=== PATIENT | male | born 1955 | race Caucasian/White ===

== ENCOUNTER 2016-08-03 12:30 | Day surgery (SDC) | payer BC ==
[~2016-08-03] VITALS: Ht 175.3 cm; Wt 97.5 kg
[~2016-08-03 12:30] MED LIST: ADVIL200 MG PO; AMRIX15 MG PO; ASCORBIC ACID500 M3 PO; ASPIR 8181 M1 PO; ATACAND16 MG PO; ATORVASTATIN CA10 MG PO; AZOPT 1% O200 DROP/1 BOTH EYES; BACTRIM,SEPT1 TABLET PO; CLINDAMYCIN HC300 MG PO; COMBIGAN O20 DROP/5 BOTH EYES; DIOVAN HCT 31 TABLE1 PO; FUROSEMIDE20 MG PO; GENTAMICIN SULF30 G1 TP; LUMIGAN 0.50 DROP/22 BOTH EYES; MELOXICAM7.5 MG PO; MEN'S MULTI-VI1 EACH PO; TIMOLOL MALEATE15 M1 BOTH EYES; TIMOPTIC-0100 DROP/1 BOTH EYES; VITAMIN D31000 UNI2 PO; XALATAN2.5 ML BOTH EYES
[2016-08-03 13:21] VITALS: BP 121/72
[2016-08-03 13:33] LABS: HEMATOCRIT 40.1 % (38.0-50.0); MCH 31.4 PG (29.0-34.0); MCHC 33.9 G/DL (30.0-36.0); MCV 92.6 FL (86-99); MEAN PLAT.VOLUME 9.3 uM^3 (9.0-12.4); PLATELET COUNT 301 K/uL (156-360); RBC DIS.WIDTH-CV 13.5 % (11.8-14.6); RBC DIS.WIDTH-SD 46.4 % (39-53); RED BLOOD COUNT 4.33 M/uL (4.00-5.50)
[2016-08-03 13:41] LABS: CHLORIDE 107 mEq/L (99-109); POTASSIUM 3.7 mEq/L (3.7-5.4); SODIUM 141 mEq/L (136-147)
[2016-08-03 13:43] LABS: GLUCOSE 117 mg/dL (70-99)
[2016-08-03 13:45] LABS: ANION GAP 13 MEQ/L (2-14); TOTAL BILIRUBIN 0.8 mg/dL (0.0-1.0)
[2016-08-03 13:47] LABS: ALKALINE PHOSPHATASE 64 IU/L (3-129); GFR ESTIMATE (CALCULATED) > 59 mL/min/
[2016-08-03 13:48] LABS: UREA NITROGEN (BUN) 14 mg/dL (9-23)
[2016-08-03 14:21] LABS: ABS NEUTROPHIL COUNT 6.1; ATYPICAL LYMPHOCYTE 3.5 %; EOSINOPHIL ABS CT 0.2; EOSINOPHILS 1.8 % (0-5.0); LYMPHOCYTES 33.3 % (15.0-45.0); PLAT.SUFFICIENCY ADEQUATE; SEG.NEUTROPHILS 55.3 % (46.0-76.0)
[2016-08-03 14:35] LABS: METH RESISTANT S AUREUS PCR NEGATIVE (NEGATIVE); PROBE CHECK PASS; SPECIMEN PROCESSING CONTROL PASS
[2016-08-03 17:50] VITALS: BP 134/75
[2016-08-03 19:38] VITALS: BP 121/66
[2016-08-03 23:43] VITALS: BP 130/63
[2016-08-04 03:52] VITALS: BP 134/80
[2016-08-04 07:21] VITALS: BP 132/74
[2016-08-04 07:59] LABS: ANION GAP 8 MEQ/L (2-14); CHLORIDE 106 MEQ/L (99-109); GFR ESTIMATE (CALCULATED) > 59 mL/min/; GLUCOSE 124 mg/dL (70-99); POTASSIUM 3.9 MEQ/L (3.7-5.4); SAMPLE HEMOLYSIS CHECK 0; SAMPLE ICTERIC CHECK 0; SAMPLE LIPEMIA CHECK 0; SODIUM 139 MEQ/L (136-147); UREA NITROGEN (BUN) 13 mg/dL (9-23)
[2016-08-04 08:12] LABS: HEMATOCRIT 38.8 % (38.0-50.0); MCH 31.4 PG (29.0-34.0); MCHC 33.8 G/DL (30.0-36.0); MEAN PLAT.VOLUME 9.5 uM^3 (9.0-12.4); PLATELET COUNT 305 K/uL (156-360); RBC DIS.WIDTH-CV 13.4 % (11.8-14.6); RBC DIS.WIDTH-SD 45.3 % (39-53); RED BLOOD COUNT 4.17 M/uL (4.00-5.50)
[2016-08-04 08:14] LABS: WHITE BLOOD COUNT 14.4 K/uL (4.1-10.2)
[2016-08-04 11:38] VITALS: BP 11/67
[2016-08-04 16:18] VITALS: BP 122/69
[2016-08-04 20:15] VITALS: BP 130/74
[2016-08-04 23:23] VITALS: BP 121/64
[2016-08-05 03:42] VITALS: BP 131/69
[2016-08-05 07:25] VITALS: BP 133/79
[2016-08-05] MEDS ORDERED: FLORASTOR250 MG PO (12:32)
[2016-08-05] MEDS ORDERED: HYDROCODON-ACE1 EAC7 PO (12:32)
[2016-08-05] MEDS ORDERED: BACTRIM,SEPT1 TABLET PO (12:32)
[2016-08-05] MEDS ORDERED: AUGMENTIN875 MG PO (12:32)
[2016-08-05] MEDS ORDERED: COLACE100 MG PO (12:32)
== END 2016-08-05 15:23 | disposition home or self-care (01) ==
LOC: SDC 12:30 → 2SOUTH 17:02 → 2EASTP 17:02
PROVIDERS: Thoracic Surgery (Cardiothoracic Vascular Surgery)
DX: L02.212 Cutaneous abscess of back [any part, except buttock and flank] (principal); L72.0 Epidermal cyst; B95.4 Other streptococcus as the cause of diseases classified elsewhere; Z86.14 Personal history of Methicillin resistant Staphylococcus aureus infection; Z86.19 Personal history of other infectious and parasitic diseases; N40.0 Benign prostatic hyperplasia without lower urinary tract symptoms; J44.9 Chronic obstructive pulmonary disease, unspecified; H40.9 Unspecified glaucoma; B18.2 Chronic viral hepatitis C; I10 Essential (primary) hypertension; E78.1 Pure hyperglyceridemia; R73.03 Prediabetes; L40.9 Psoriasis, unspecified; D47.3 Essential (hemorrhagic) thrombocythemia; E55.9 Vitamin D deficiency, unspecified; Z80.0 Family history of malignant neoplasm of digestive organs; Z79.82 Long term (current) use of aspirin; Z87.891 Personal history of nicotine dependence
CPT/HCPCS: 80048; 80053; 85007; 85027; 86850; 86900; 86901; 87070; 87075; 87076; 87205; 87641; 88304; 93005; G0378; J0290; J0690; J1100; J1170; J1644; J2250; J2405; J3370; J7040; J7050

== ENCOUNTER → 2017-06-12 | Outpatient (CLI) | payer BC ==
[~2017-06-12] MED LIST changes: +AUGMENTIN875 MG PO; +COLACE100 MG PO; +FLORASTOR250 MG PO; +HYDROCODON-ACE1 EAC7 PO
== END | disposition home or self-care (01) ==
LOC: RES 08:49
DX: J98.4 Other disorders of lung (principal)
CPT/HCPCS: 94060; 94726; 94729